=== PATIENT | female | born 1980 | race Caucasian/White ===

== ENCOUNTER 2016-04-26 16:13 | Inpatient (IN) | payer MEDICAID ==
[2016-04-26 17:37] LABS: Urine Bilirubin Negative (Negative); Urine Glucose Negative (Negative); Urine Nitrite Negative (Negative)
[2016-04-26 17:48] LABS: Benzodiazepine Urine Screen None Detected (None Detect)
[2016-04-26 18:06] LABS: Hematocrit 38 % (35-47); Mean Corpuscular HGB Conc 34 g/dl (31-36); Mean Corpuscular Hemoglobin 33 pg (27-31); Mean Corpuscular Volume 97 fL (80-97); Mean Platelet Volume 10 um3 (7.4-10.4); Red Blood Count 3.96 10^6/ul (4.0-5.4); Red Cell Distribution Width 12 % (10.5-15); White Blood Count 5.6 10^3/ul (3.5-10.8)
--- NOTE | 2016-04-26 18:17 | ED ---
Psychiatric Complaint - HPI Summary HPI Summary: Patient arrives with therapist with CC of SI thoughts with a plan. She states she is becoming increasingly depressed with recent thoughts of SI. Today she spoke with her therapist stating she had a plan to kill herself with a combination of alcohol and tramadol, but called the therapist first who brought her here. Patient endorses years of depression and intermittent SI, but this is the first time she endorses a plan and was beginning to carry it out. Denies using today, although admits to taking some of her boyfriends tramadol recently. She has chronic back pain and is scheduled for an OP MRI soon. She takes several vitamins, but denies prescription medications. She denies anxiety. She denies known family history of psychiatric illness. Today she notes to some back pain which is chronic, but denies other pain. She denies SOB , chest discomfort, weakness or ELIAS. - History Of Current Complaint Chief Complaint: [facility]entalHealth Time Seen by Provider: 04/26/16 16:33 Hx Obtained From: Patient Hx Last Menstrual Period: 11/28/15 ?: No Onset/Duration: Gradual Onset Timing: Hours Severity Initially: Moderate Severity Currently: Moderate Character: Depressed Aggravating Factor(s): Nothing, Other - depression becoming worse Associated Signs And Symptoms: Positive: Sleep Disturbance Related History: Positive For: Prior Psychiatric Issues - depression Has Suicidal: Reports: Thoughts, With A Plan - Risk Factor(s) Completed Suicide Risk Factors: Negative - Allergies/Home Medications Allergies/Adverse Reactions: Allergies Allergy/AdvReac Type Severity Reaction Status Date / Time Penicillins Allergy Severe Rash Verified 12/26/15 11:36 Home Medications: Home Medications Naproxen TAB* [Naprosyn TAB*] 500 mg PO DAILY 04/26/16 [History Confirmed ] PMH/Surg Hx/FS Hx/Imm Hx Previously Healthy: Yes - hx of depression Endocrine/Hematology History: Denies: Hx Anticoagulant Therapy, Hx Diabetes, Hx Thyroid Disease Cardiovascular History: Denies: Hx Congestive Heart Failure, Hx Deep Vein Thrombosis, Hx Hypertension , Hx Myocardial Infarction, Hx Pacemaker/ICD Respiratory History: Reports: Hx Asthma Denies: Hx Chronic Obstructive Pulmonary Disease (COPD), Hx Lung Cancer, Hx Pneumonia, Hx Pulmonary Embolism GI History: Denies: Hx Gall Bladder Disease, Hx Gastrointestinal Bleed, Hx Ulcer, Hx Urosepsis History: Denies: Hx Kidney Stones, Hx Renal Disease Neurological History: Denies: Hx Dementia, Hx Migraine, Hx Seizures, Hx Transient Ischemic Attacks (TIA) Psychiatric History: Denies: Hx Anxiety, Hx Depression, Hx Schizophrenia, Hx Bipolar Disorder - Surgical History Surgery Procedure, Year, and Place: APPENDECTOMY Infectious Disease History: No Infectious Disease History: Denies: History Other Infectious Disease, Traveled Outside the [place] in Last 30 Days - Family History Known Family History: Positive: Cardiac Disease, Hypertension, Diabetes Negative: Blood Disorder - Social History Occupation: Unemployed Lives: With Family Alcohol Use: Rare Substance Use Type: Reports: None Smoking Status (MU): Light Every Day Tobacco Smoker Type: Cigarettes Amount Used/How Often: 6 cig/day Length of Time of Smoking/Using Tobacco: 16 YEARS Have You Smoked in the Last Year: Yes Review of Systems Constitutional: Negative Cardiovascular: Negative Respiratory: Negative Gastrointestinal: Negative Positive: no symptoms reported, see HPI Positive: Arthralgia - low back pain - chronic Skin: Negative Neurological: Negative Positive: Depressed All Other Systems Reviewed And Are Negative: Yes Physical Exam Triage Information Reviewed: Yes Vital Signs On Initial Exam: Initial Vitals Temp Pulse Resp BP Pulse Ox 99.3 F 67 20 114/75 100 04/26/16 16:21 04/26/16 16:21 04/26/16 16:21 04/26/16 16:21 04/26/16 16:21 Vital Signs Reviewed: Yes Appearance: Positive: Well-Appearing, No Pain Distress, Well-Nourished Skin: Positive: Warm, Skin Color Reflects Adequate Perfusion Head/Face: Positive: Normal Head/Face Inspection Eyes: Positive: Normal, EOMI, CATY ENT: Positive: Hearing grossly normal Neck: Positive: Nontender, No Lymphadenopathy Respiratory/Lung Sounds: Positive: Clear to Auscultation, Breath Sounds Present Cardiovascular: Positive: Normal, RRR Musculoskeletal: Positive: Normal, Strength/ROM Intact Neurological: Positive: Sensory/Motor Intact, Alert, Oriented to Person Place, Time, Normal Gait, Speech Normal Psychiatric: Positive: Normal, Affect/Mood Appropriate AVPU Assessment: Alert - Luis Armando Coma Scale Best Eye Response: 4 - Spontaneous Best Motor Response: 6 - Obeys Commands Best Verbal Response: 5 - Oriented Diagnostics - Vital Signs Vital Signs Temp Pulse Resp BP Pulse Ox 04/26/16 16:21 99.3 F 67 20 114/75 100 - Laboratory Lab Results: Lab Results 04/26/16 04/26/16 04/26/16 Range/Units 17:25 17:25 17:50 WBC 5.6 (3.5-10.8) 10^3/ul RBC 3.96 L (4.0-5.4) 10^6/ul Hgb 13.0 (12.0-16.0) g/dl Hct 38 (35-47) % MCV 97 (80-97) fL MCH 33 H (27-31) pg MCHC 34 (31-36) g/dl RDW 12 (10.5-15) % Plt Count 207 (150-450) 10^3/ul MPV 10 (7.4-10.4) um3 Neut % (Auto) 54.7 (38-83) % Lymph % (Auto) 36.8 (25-47) % [place] % (Auto) 6.7 (1-9) % Eos % (Auto) 1.1 (0-6) % Baso % (Auto) 0.7 (0-2) % Absolute Neuts (auto) 3.1 (1.5-7.7) 10^3/ul Absolute Lymphs (auto) 2.1 (1.0-4.8) 10^3/ul Absolute Monos (auto) 0.4 (0-0.8) 10^3/ul Absolute Eos (auto) 0.1 (0-0.6) 10^3/ul Absolute Basos (auto) 0 (0-0.2) 10^3/ul Absolute Nucleated RBC 0 10^3/ul Nucleated RBC % 0.1 Urine Color Ally Urine Appearance Cloudy Urine pH 5.0 (5-9) Ur Specific Peterson 1.024 (1.010-1.030) Urine Protein Negative (Negative) Urine Ketones Trace H (Negative) Urine Blood Negative (Negative) Urine Nitrate Negative (Negative) Urine Bilirubin Negative (Negative) Urine Urobilinogen Negative (Negative) Ur Leukocyte Esterase Negative (Negative) Urine Glucose Negative (Negative) Urine Ascorbic Acid * H (Negative) Urine Opiates Screen Presumptive positive H (None Detect) Ur Barbiturates Screen None detected (None Detect) Ur Phencyclidine Scrn None detected (None Detect) Ur Amphetamines Screen None detected (None Detect) U Benzodiazepines Scrn None detected (None Detect) Urine Cocaine Screen None detected (None Detect) U Cannabinoids Screen None detected (None Detect) Result Diagrams: 04/26/16 17:50 04/26/16 17:50 Lab Statement: Any lab studies that have been ordered have been reviewed, and results considered in the medical decision making process. Course/Dx - Course Course Of Treatment: Patient with SI and thoughts of plan here with therapist after contacting them stating her plan. Plan to commit suicide after increasing depression. Will need MH evaluation. - Differential Dx/Clinical Impression Differential Diagnosis/HQI/PQRI: Positive: Depression, Drug Overdose/Intentional , Suicide Attempt, Suicidal Ideation, Suicidal Gesture Provider Diagnosis: Depression Discharge - Discharge Plan Condition: Stable Disposition: HOME
[2016-04-26 18:22] LABS: ALT 11 U/L (7-52); AST 13 U/L (13-39); Albumin 4.4 g/dL (3.2-5.2); Alkaline Phosphatase 57 U/L (34-104); Anion Gap 6 mmol/L (2-11); BUN/Creatinine Ratio 30.2 (8-20); Blood Urea Nitrogen 16 mg/dL (6-24); CO2 Carbon Dioxide 26 mmol/L (22-32); Calcium 9.5 mg/dL (8.6-10.3); Chloride 101 mmol/L (101-111); EGFR African American 169.8 (>60); EGFR Non-African American 132.1 (>60); Globulin 2.6 g/dL (2-4); Glucose 88 mg/dL (70-100); Potassium 3.6 mmol/L (3.5-5.0); Sodium 133 mmol/L (133-145)
[2016-04-26 18:50] LABS: Acetaminophen < 15 mcg/mL; Alcohol < 10 mg/dL (<10); Salicylate < 2.50 mg/dL (<30)
[2016-04-26 18:57] LABS: TSH (Thyroid Stimulating Horm) 1.36 mcIU/mL (0.34-5.60)
[2016-04-26] MEDS ORDERED: Acetaminophen TAB* 325 MG PO PRN (23:46)
[2016-04-26] MEDS ORDERED: Al Hydrox/Mg Hydrox/Simet LIQ* 30 ML UDC PO PRN (23:46)
[2016-04-26] MEDS ORDERED: Naproxen TAB* 250 MG PO PRN (23:47)
[2016-04-27] MEDS: ValACYclovir (*) 500 MG TAB PO SCH (10:00)
[2016-04-27] MEDS: Vitamin THERAPEUTIC TAB PO SCH (10:01)
--- NOTE | 2016-04-27 11:58 | PN ---
MHU: Group Therapy Note - Service Type Service Type: [id number] Group Psychotherapy - Cognitive Behavioral Group Therapy ( CBT):Patient was attentive and participatory in CBT programming this morning, and remained in good behavioral control. Patient expressed positive insights regarding relevant treatment interventions and goals.
[2016-04-27] MEDS ORDERED: Nicotine Inhaler* 10 MG AMP INH PRN (12:38)
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
[2016-04-27] MEDS ORDERED: Saline NASAL DROPS 0.65%* 1 DROP BTL BOTH NARES PRN (17:33)
--- NOTE | 2016-04-27 22:24 | CONS ---
CONSULTATION REPORT: DATE OF CONSULT: 04/27/16 PRIMARY CARE PROVIDER: Cabrera Alcala NP. REASON FOR CONSULT: Vaginal itching and sinus congestion. HISTORY OF PRESENT ILLNESS: Stephanie Moreno is a 36-year-old female with a history of depression, currently being admitted for suicidal ideation to our mental health unit. The patient also has a history of chronic lower back pain. She complains to Dr. Pan of sinus congestion. She also had problems with recent vaginal yeast infections for which she treated herself with over-the- counter medications for 2 days only. Due to the above mentioned, consultation with Medicine was recommended. Please note that this is a short consultation and does not include a physical exam that was not performed. The patient was eating a meal during our conservation. She stated that she has had sinus congestion for approximately 2 weeks. She describes her nasal discharge as "yellow." She denies any fevers, teeth pain, or maxillary pain or headaches. In regards to her vaginal yeast infection, the patient stated that she had them before. It is the same as the usual. She complains of vaginal pruritus. She took an [id number] medication for only 2 days. PAST MEDICAL HISTORY: Includes: 1. Chronic low back pain. 2. History of self motivation in the past. 3. History of psychiatric hospitalizations with suicidal ideations in the past. 4. Depression. MEDICATIONS: At home include: 1. Naproxen 500 mg on a p.r.n. basis. 2. Tizanidine on a p.r.n. basis as prescribed by her primary care provider. FAMILY HISTORY: Noncontributory. SOCIAL HISTORY: The patient denies any history of alcohol or drug use. She used to smoke but stopped several months ago. She lives with her boyfriend. As her surrogate, she named her aunt, Shawn Messer, who lives in [place], [place]. REVIEW OF SYSTEMS: Please see history of present illness. All other 14 review of systems were completed with the patient and were otherwise negative. PHYSICAL EXAM: Deferred for the time being. DIAGNOSTIC STUDIES/LAB DATA: Obtained on 04/26/16. Sodium of 133, potassium 3.6, chloride 101, carbon dioxide 26, BUN 16, creatinine 0.53. Liver functions were unremarkable. TSH of 1.36. White blood cell count 5.6, hemoglobin 13.0, hematocrit 38, and platelets of 207. Urinalysis was unremarkable apart from trace of ketones. ASSESSMENT AND PLAN: 1. In regards to patient's sinus congestion, at this point I do not believe the antibiotic treatment as warranted. The patient is going to be placed on saline nasal drops. She also can continue taking Naproxen on a p.r.n. basis, if she develops headache. 2. For her presumed vaginal yeast infection, the patient is going to be placed on clotrimazole vaginally for a total of 7 days treatment. If the symptoms persist, recommend gynecological evaluation. 3. In regards to patient's depression and suicidal ideation as well as self motivation in the past, I will defer this treatment to Psychiatry. TIME SPENT: Approximately 20 minutes was spent on consultation of this patient. Thank you very much for allowing me to see your patient in consultation. We will see the patient on a p.r.n. basis. CC: Dr. Pan; Cabrera Alcala NP * [id number]/[facility] #: [id number] [facility] MEDICAL CENTERJessie
[2016-04-28] MEDS: Vitamin THERAPEUTIC TAB PO SCH (08:57)
[2016-04-28] MEDS: ValACYclovir (*) 500 MG TAB PO SCH (08:58)
[2016-04-28] MEDS: Clotrimazole 1% VAGINAL CREAM* 45 GM VAGINAL SCH ×2 (10:10→21:42)
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
--- NOTE | 2016-04-28 12:54 | PN ---
MHU: Group Therapy Note - Service Type Service Type: [id number] Group Psychotherapy - Cognitive Behavioral Group Therapy ( CBT):Patient was attentive and participatory in CBT programming this morning, and remained in good behavioral control. Patient expressed positive insights regarding relevant treatment interventions and goals.
[2016-04-29] MEDS: ValACYclovir (*) 500 MG TAB PO SCH (08:58)
[2016-04-29] MEDS: Vitamin THERAPEUTIC TAB PO SCH (08:58)
--- NOTE | 2016-04-29 13:50 | PN ---
MHU: Group Therapy Note - Service Type Service Type: [id number] Group Psychotherapy - Cognitive Behavioral Group Therapy ( CBT):Patient was attentive and participatory in CBT programming this morning, and remained in good behavioral control. Patient expressed positive insights regarding relevant treatment interventions and goals.
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
[2016-04-29] MEDS: FLUoxetine CAP* 10 MG PO SCH (16:05)
[2016-04-29] MEDS: Clotrimazole 1% VAGINAL CREAM* 45 GM VAGINAL SCH (20:58)
[2016-04-30 08:04] VITALS: BP 113/65
[2016-04-30] MEDS: Vitamin THERAPEUTIC TAB PO SCH (08:55)
[2016-04-30] MEDS: FLUoxetine CAP* 10 MG PO SCH (08:56)
[2016-04-30] MEDS ORDERED: VALACYCLOVIR 500 MG PO SCH (09:00)
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
--- NOTE | 2016-04-30 11:55 | PN ---
[facility]: Group Therapy Note - Service Type Service Type: 92830 Group Psychotherapy - Cognitive Behavioral Group Therapy ( CBT):Patient was attentive and participatory in CBT programming this morning, and remained in good behavioral control. Patient expressed positive insights regarding relevant treatment interventions and goals.
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
== END 2016-04-30 11:00 | disposition home or self-care (01) | DRG 755 ==
LOC: ED 16:13 → BSU 22:49
PROVIDERS: ADMIT Psychiatry & Neurology Psychiatry; ATTEND Psychiatry & Neurology Psychiatry
PROC: GZHZZZZ Group Psychotherapy (ICD-10-PCS; principal; 2016-04-27)
DX: F43.10 Post-traumatic stress disorder, unspecified (principal); F32.9 Major depressive disorder, single episode, unspecified; J45.909 Unspecified asthma, uncomplicated; F41.9 Anxiety disorder, unspecified; B37.3 Candidiasis of vulva and vagina; F43.21 Adjustment disorder with depressed mood; Z88.0 Allergy status to penicillin; Z87.891 Personal history of nicotine dependence; Z62.810 Personal history of physical and sexual abuse in childhood; Z81.8 Family history of other mental and behavioral disorders; Z82.49 Family history of ischemic heart disease and other diseases of the circulatory system; Z83.3 Family history of diabetes mellitus; G89.29 Other chronic pain; M54.5 Low back pain; J34.89 Other specified disorders of nose and nasal sinuses
CPT/HCPCS: 36415; 80053; 80307; 80320; 80329; 81003; 84443; 85025; 90853; 96102; 99222; 99231; 99238; A9270-GY; G0480